=== PATIENT | female | born 2000 | race Caucasian/White ===

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

== ENCOUNTER 2020-07-06 12:43 | Outpatient (REF) | payer OTHER, SELFPAY ==
[2020-07-07 17:55] LABS: Prolactin 4.4 ng/mL (See Table)
[2020-07-07 17:57] LABS: FSH 5.9 mIU/mL (See Note)
== END 2020-07-06 13:03 ==
LOC: NCHCN 12:43
PROVIDERS: PCP Registered Nurse; Visit Provider Registered Nurse
DX: N91.1 Secondary amenorrhea (principal)
CPT/HCPCS: 83001; 84146